=== PATIENT | female | born 1995 | race Caucasian/White ===

== ENCOUNTER 2021-08-17 07:50 | Observation (INO) | payer MEDICAID ==
[~2021-08-17] VITALS: Ht 162.6 cm; Wt 63.5 kg
[2021-08-17] MEDS ORDERED: ACETAMINOPHEN 325MG TABLET PO STA (08:04)
[2021-08-17 08:30] VITALS: BP 120/93
[2021-08-17 08:47] LABS: CHLORIDE 107 mEq/L (98-107)
[2021-08-17 08:53] LABS: BASOPHILS % 0.5 % (0.0-2.0); EOSINOPHILS % 2.5 % (0.0-5.0); HEMATOCRIT. 31.4 % (36.0-48.0); HEMOGLOBIN. 10.4 g/dL (12.0-16.0); LYMPHOCYTES % 21.2 % (20.0-50.0); MEAN CORPUSCULAR HEMOGLOBIN 29.9 pg (28.0-32.0); MEAN PLATELET VOLUME 8.4 fl (7.4-10.4); NEUTROPHILS % 70.8 % (40.0-76.0); PLATELET 314 x1000/uL (130-400); RED BLOOD CELL COUNT 3.49 mill/uL (4.2-5.4)
[2021-08-17 09:10] LABS: B-HCG QUANTITATIVE 12491 mIU/mL (<3)
[2021-08-17] MEDS ORDERED: TOPUD PO (10:09)
== END 2021-08-17 12:45 | disposition home or self-care (01) ==
LOC: ER 07:50 → 8 EST LDRP 10:23 → ER 10:39 → 8 EST LDRP 10:39
PROVIDERS: ADMIT Obstetrics & Gynecology; ATTEND Obstetrics & Gynecology
DX: O26.892 Other specified pregnancy related conditions, second trimester (principal); R10.9 Unspecified abdominal pain; V89.2XXA Person injured in unspecified motor-vehicle accident, traffic, initial encounter; Y92.410 Unspecified street and highway as the place of occurrence of the external cause; Y93.89 Activity, other specified; Y99.8 Other external cause status; Z79.899 Other long term (current) drug therapy; Z3A.27 27 weeks gestation of pregnancy
CPT/HCPCS: 36415; 76815; 80053; 84702; 85025; 86850; 86900; 86901; 99281; G0378; 59025; 99284